=== PATIENT | female | born 1980 | race Caucasian/White ===

== ENCOUNTER 2018-04-07 15:21 | Emergency (ER) | payer SELFPAY ==
[2018-04-07 15:28] VITALS: BP 124/80
--- NOTE | 2018-04-07 16:07 | ER Document Report ---
HPI - HPI Patient complains to provider of: Wound under right breast Onset: Other - 2 months Pain Level: 5 Context: 38-year-old female had a pimple under her right breast that opened up and has been draining ever since with a foul odor. The skin around the wound has gotten redder recently and her mother wanted her checked. Associated Symptoms: None Exacerbated by: Denies Relieved by: Denies Similar symptoms previously: No Recently seen / treated by doctor: No - ROS ROS below otherwise negative: Yes Systems Reviewed and Negative: Yes All other systems reviewed and negative Past Medical History - General Information source: Patient - Social History Smoking Status: Current Every Day Smoker Chew tobacco use (# tins/day): No Frequency of alcohol use: None Drug Abuse: None Lives with: Family Family History: Reviewed & Not Pertinent Patient has suicidal ideation: No Patient has homicidal ideation: No - Medical History Medical History: Negative Renal/ Medical History: Denies: Hx Peritoneal Dialysis Past Surgical History: Reports: Hx Cholecystectomy, Hx Orthopedic Surgery - right Hand - Immunizations Immunizations up to date: Yes Hx Diphtheria, Pertussis, Tetanus Vaccination: Yes Vertical Provider Document - CONSTITUTIONAL Agree With Documented VS: Yes Exam Limitations: No Limitations - INFECTION CONTROL TRAVEL OUTSIDE OF THE [place] IN LAST 30 DAYS: No - NEURO Level of Consciousness: Alert - DERM Integumentary: Rash - Dry pale pink macular chest wall and inferior breast rash which looks like a dermatitis, there is no breast mass or chest wall mass. The skin crease under the right breast against the chest wall has a 2 mm hole that is draining serous fluid with this foul odor, I probed with a Q-tip and it is superficial along the red adjacent scar tissue Course - Re-evaluation Re-evalutation: 04/07/18 Mom looked at the wound today and it does look smaller than it did 3 days ago. I did discuss at length with the patient that she will need a surgical follow- up possibly dermatology follow-up at the worse case scenario would be some sort of breast cancer although I did not feel a breast mass. She understands these instructions and the importance of her following up - Vital Signs Vital signs: Temp Pulse Resp BP Pulse Ox 98.8 F 84 16 124/80 96 04/07/18 15:26 04/07/18 15:26 04/07/18 15:26 04/07/18 15:26 04/07/18 15:26 Discharge - Discharge Clinical Impression: right chest wall draining wound, chest dermatitis Condition: Good Disposition: HOME, SELF-CARE Instructions: Doxycycline ([facility]), Dressing Instructions for Open Wounds ([facility]), Topical Steroid Cream or Ointment ([facility]) Additional Instructions: Antibacterial soap and rinse twice a day Dry dressing Take the antibiotics [id number] hydrocortisone cream to the dry red skin around this area Referral to general surgery and dermatology Turned to the emergency room any concerns Prescriptions: Doxycycline Hyclate 100 mg PO BID #20 tablet Referrals: PRASHANTH BENAVIDES DO [ACTIVE STAFF] - Follow up in 1 week ANA CABRERA MD [ACTIVE STAFF] - Follow up in 1 week
== END 2018-04-07 16:30 | disposition home or self-care (01) ==
LOC: ER 15:21
DX: R23.8 Other skin changes (principal); L30.9 Dermatitis, unspecified; F17.200 Nicotine dependence, unspecified, uncomplicated
CPT/HCPCS: 87070; 87075; 87077; 87205; 99283

== ENCOUNTER 2019-11-28 07:21 | Emergency (ER) | payer SELFPAY ==
[2019-11-28] MEDS ORDERED: KETOROLAC TROMETHAMINE 60 MG/2 ML SDV IM ONE (08:36)
[2019-11-28] MEDS ORDERED: HYDROCODONE/ACETAMINOPHEN 5-325 MG TABLET PO ONE (08:36)
--- NOTE | 2019-11-28 08:38 | ER Document Report ---
HPI - HPI Patient complains to provider of: Left arm pain Time Seen by Provider: 11/28/19 08:21 Onset: Other - 3 months Quality of pain: Burning Pain Level: 2 Context: Patient presents complaining of left upper extremity pain along the posterior aspect of the left arm. Patient does complain of left upper back and neck pain as well. Patient denies any injury. Patient denies any fever. Patient states she has had this pain for the past 2 to 3 months. 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 Patient states that burning pain became worse and that is what prompted her visit today. Associated Symptoms: Other - Left arm pain. denies: Fever, Headache Exacerbated by: Movement Relieved by: Denies Similar symptoms previously: No Recently seen / treated by doctor: No - ROS ROS below otherwise negative: Yes Systems Reviewed and Negative: Yes All other systems reviewed and negative - CONSTITUTIONAL Constitutional: DENIES: Fever, Chills - NEURO Neurology: DENIES: Weakness - CARDIOVASCULAR Cardiovascular: DENIES: Chest pain - GASTROINTESTINAL Gastrointestinal: DENIES: Abdominal Pain, Nausea - REPRODUCTIVE Reproductive: DENIES: : - MUSCULOSKELETAL Musculoskeletal: REPORTS: Extremity pain - left arm(wrist,elbow,shoulder), Back Pain - Left upper back pain, Neck Pain - DERM Skin Color: Normal Skin Problems: None Past Medical History - General Information source: Patient - Social History Smoking Status: Current Every Day Smoker Drug Abuse: Marijuana Occupation: [employer] Family History: Reviewed & Not Pertinent Patient has suicidal ideation: No Patient has homicidal ideation: No Renal/ Medical History: Denies: Hx Peritoneal Dialysis Psychiatric Medical History: Reports: Hx Depression Past Surgical History: Reports: Hx Cholecystectomy, Hx Orthopedic Surgery - right Hand - Immunizations Immunizations up to date: Yes Hx Diphtheria, Pertussis, Tetanus Vaccination: Yes Vertical Provider Document - CONSTITUTIONAL Agree With Documented VS: Yes Exam Limitations: No Limitations General Appearance: WD/WN, No Apparent Distress - INFECTION CONTROL TRAVEL OUTSIDE OF THE [place] IN LAST 30 DAYS: No - HEENT HEENT: Atraumatic, Normocephalic - NECK Neck: Supple. negative: Lymphadenopathy-Left, Lymphadenopathy-Right Notes: Left paraspinal cervical tenderness C4-7 area - RESPIRATORY Respiratory: Breath Sounds Normal, No Respiratory Distress - CARDIOVASCULAR Cardiovascular: Regular Rate, Regular Rhythm Pulses: Normal: Radial - BACK Back: Abnormal Inspection - Left trapezius muscle tenderness - MUSCULOSKELETAL/EXTREMETIES Musculoskeletal/Extremeties: MAEW, FROM, Tender - Redness to the posterior aspect of left upper extremity from shoulder to the left fourth and fifth fingers, No Edema. negative: Eccymosis - NEURO Level of Consciousness: Awake, Alert, Appropriate Motor/Sensory: No Motor Deficit, No Sensory Deficit - DERM Integumentary: Warm, Dry, No Rash Course - Re-evaluation Re-evalutation: 11/28/19 10:02 Patient with cervical spine spurring at the C5-6 level. Patient presents with likely cervical radicular pain symptoms. Patient with good strength and muscle tone. Patient encouraged to follow-up with orthopedics for further evaluation at this time. Good return precautions discussed with patient. - Vital Signs Vital signs: Temp Pulse Resp BP Pulse Ox 98.1 F 86 18 117/76 98 11/28/19 07:25 11/28/19 07:25 11/28/19 07:25 11/28/19 07:25 11/28/19 07:25 - Diagnostic Test Radiology reviewed: Reports reviewed Discharge - Discharge Clinical Impression: Cervical radiculopathy, Left arm pain Condition: Stable Disposition: HOME, SELF-CARE Instructions: Radiculopathy ([facility]), Steroid Medication Additional Instructions: Return immediately for any new or worsening symptoms Followup with your primary care provider, call tomorrow to make a followup appointment Follow-up with sports marketing specialist, call today to make a follow-up appointment. Prescriptions: Prednisone [Deltasone 20 mg Tablet] 3 tab PO DAILY 4 Days #12 tablet Lidocaine [Lidoderm 5% (700 mg) Transdermal Patch] 1 patch TP DAILY PRN #10 adh..patch PRN Reason: Hydrocodone/Acetaminophen [Shaw 5-325 mg Tablet] 1 tab PO Q6 PRN #15 tablet PRN Reason: Forms: Return to Work Referrals: SUKHJINDER RODRIGUEZ PA-C [Primary Care Provider] - Follow up as needed [facility] [Provider Group] - Follow up as needed
--- NOTE | 2019-11-28 09:42 | RADIOLOGY REPORT (SQ) ---
EXAM DESCRIPTION: CERV SP 4 OR 5 VIEWS COMPLETED DATE/TIME: 11/28/2019 8:58 am REASON FOR STUDY: neck pain, L arm pain COMPARISON: None. NUMBER OF VIEWS: Five views. TECHNIQUE: AP, lateral, obliques and odontoid radiographic images acquired of the cervical spine. LIMITATIONS: None. FINDINGS: MINERALIZATION: Normal. ALIGNMENT: Anatomic. VERTEBRAE: Vertebral bodies of normal height. DISCS: No significant osteophytes or sclerosis. Disc height maintained. FORAMINA: Mild left C5-6 neural foraminal narrowing from facet and uncovertebral hypertrophy LATERAL AND POSTERIOR ELEMENTS: Facets, lateral masses and spinous processes without significant find ings. HARDWARE: None in the spine. SOFT TISSUES: No masses or calcifications. Lung apices clear. OTHER: No other significant finding. IMPRESSION: Mild left C5-6 foraminal narrowing from bony spurring. TECHNICAL DOCUMENTATION: JOB ID: [id number] [employer]- All Rights Reserved Reading location - IP/workstation name: [email or web address]
[2019-11-28 11:03] VITALS: BP 115/80
== END 2019-11-28 10:21 | disposition home or self-care (01) ==
LOC: ER 07:21
DX: M54.12 Radiculopathy, cervical region (principal); M46.02 Spinal enthesopathy, cervical region; M25.522 Pain in left elbow; M25.532 Pain in left wrist; M25.512 Pain in left shoulder; M54.2 Cervicalgia; M54.9 Dorsalgia, unspecified; L53.9 Erythematous condition, unspecified; F17.200 Nicotine dependence, unspecified, uncomplicated; F12.10 Cannabis abuse, uncomplicated
CPT/HCPCS: 99283; 96372; 72050; J1885